=== PATIENT | female | born 1990 | race African-American/Black ===

== ENCOUNTER 2016-11-19 00:06 | Emergency (ER) | payer OTHER ==
[~2016-11-19] VITALS: Ht 157.5 cm; Wt 72.6 kg
[2016-11-19] MEDS ORDERED: NAPHCON-A EYE D15 ML OP (01:30)
[2016-11-19] MEDS ORDERED: ROBAXIN500 MG PO (01:30)
[2016-11-19] MEDS ORDERED: NAPROSYN500 MG PO (01:30)
[2016-11-19 01:34] LABS: URINE BILIRUBIN NEGATIVE (Negative); URINE BLOOD NEGATIVE (Negative); URINE COLOR YELLOW; URINE GLUCOSE-RANDOM* NEGATIVE (Negative); URINE KETONES NEGATIVE (Negative); URINE LEUKOCYTES-REFLEX NEGATIVE (Negative); URINE PROTEIN (DIPSTICK) NEGATIVE (Negative); URINE UROBILINOGEN 0.2 E.U./dl (0.2-1.0)
[2016-11-19 01:51] VITALS: BP 102/76
== END 2016-11-19 01:52 | disposition home or self-care (01) ==
LOC: ER 00:06
PROVIDERS: Emergency Medicine
DX: J30.89 Other allergic rhinitis (principal); M54.5 Low back pain; Z77.22 Contact with and (suspected) exposure to environmental tobacco smoke (acute) (chronic)

== ENCOUNTER 2017-01-04 10:58 | Emergency (ER) | payer OTHER ==
[~2017-01-04] VITALS: Ht 157.5 cm; Wt 72.6 kg
[~2017-01-04 10:58] MED LIST: NAPHCON-A EYE D15 ML OP; NAPROSYN500 MG PO; ROBAXIN500 MG PO
[2017-01-04 11:12] LABS: URINE BILIRUBIN NEGATIVE (Negative); URINE BLOOD TRACE (Negative); URINE COLOR YELLOW; URINE GLUCOSE-RANDOM* NEGATIVE (Negative); URINE KETONES NEGATIVE (Negative); URINE NITRITE NEGATIVE (Negative); URINE PROTEIN (DIPSTICK) NEGATIVE (Negative); URINE UROBILINOGEN 0.2 E.U./dl (0.2-1.0)
[2017-01-04 11:18] LABS: SQUAMOUS >10 Many /LPF (0-3); URINE RBC None Seen /HPF (0-2); URINE WBC 6-15 Few /HPF (0-5)
[2017-01-04 11:19] LABS: BACTERIA 1-9 Few /HPF (None Seen); CASTS None Seen /LPF (None Seen); CRYSTALS None Seen /LPF (None Seen)
[2017-01-04] MEDS ORDERED: KEFLEX500 MG PO (12:01)
[2017-01-04] MEDS ORDERED: MOBIC15 MG PO (12:01)
[2017-01-05 18:10] LABS: CHLAMYDIA TRACHOMATIS-PCR Negative (Negative); NEISSERIA GONORRHEA-PCR Negative (Negative)
== END 2017-01-04 12:25 | disposition home or self-care (01) ==
LOC: ER 10:58
PROVIDERS: Physician Assistant
DX: N39.0 Urinary tract infection, site not specified (principal); Z77.22 Contact with and (suspected) exposure to environmental tobacco smoke (acute) (chronic)